=== PATIENT | female | born 1950 | race African-American/Black ===

== ENCOUNTER 2017-02-20 18:06 | Emergency (ER) | payer OTHER ==
[~2017-02-20] VITALS: Ht 157.5 cm; Wt 49.4 kg
--- NOTE | ~2017-02-20 | EKG ---
[address] [place] [address] ELECTROCARDIOGRAM REPORT Name: ISELA MALHOTRA Room #: [facility] Viki#: [id number] Admission: 02/20/17 Attend Phys: Discharge: 02/20/17 Date of : 48 Report #: [id number] THIS REPORT FOR: //name// [facility] ED Test Date: 2017-02-20 Test Time: 18:11:49 Pat Name: ISELA MALHOTRA Department: Room: Gender: F Field Consultant: [id number] : 1950 Requested By: Karthik Fernández Order Number: [id number] MD: Noam Restrepo Measurements Intervals [place] Rate: 79 P: 27 ND: 125 QRS: 4 QRSD: 84 T: 36 QT: 377 QTc: 433 Interpretive Statements Sinus rhythm Borderline low voltage, extremity leads RSR' in V1 or V2, right VCD Compared to ECG 03/21/2007 15:49:08 No significant change was found Electronically Signed On 02-21-2017 10:59:52 CDT by Noam Restrepo [email or web address] <ELECTRONICALLY SIGNED> By: Noam Restrepo MD, [facility] 02/21/17 1059 181 10 Noam Restrepo MD, [facility] /EPI
[~2017-02-20 18:06] MED LIST: MULTI FOR HER1 EACH PO
[2017-02-20 18:51] LABS: HEMATOCRIT 37.5 % (37.0-47.0); HEMOGLOBIN 12.8 gm/dL (12.0-15.0); MCH 31.6 pg (26.0-34.0); MCHC 34.2 g/dL (28.0-37.0); MCV 92.5 fL (80.0-100.0); RBC 4.05 mil/uL (4.20-5.00); RDW 12.9 % (10.5-14.5); WBC 5.2 thou/uL (4.0-11.0)
[2017-02-20 19:01] LABS: ANION GAP 5 mmol/L (7-16); BUN 14 mg/dL (7-18); CALCIUM 9.1 mg/dL (8.5-10.1); CHLORIDE 105 mmol/L (98-107); CO2 30 mmol/L (21-32); GLUCOSE 88 mg/dL (74-106); POTASSIUM 3.7 mmol/L (3.5-5.1); SODIUM 140 mmol/L (136-145)
[2017-02-20 19:09] LABS: TROPONIN-I < 0.04 ng/mL (<0.04-0.07)
[2017-02-20 21:59] VITALS: BP 105/59
== END 2017-02-20 21:59 | disposition home or self-care (01) ==
LOC: ER 18:06
PROVIDERS: Emergency Medicine
DX: R07.9 Chest pain, unspecified (principal)